=== PATIENT | female | born 2000 | race Hispanic/Latino ===

== ENCOUNTER 2022-09-15 15:11 | Inpatient (IN) | payer OTHER ==
[~2022-09-15] VITALS: Ht 152.4 cm; Wt 63.5 kg
[2022-09-15] MEDS ORDERED: SODIUM CHLORIDE 0.9% 1000ML 1,000 ML IV STA (15:37)
[2022-09-15] MEDS ORDERED: Vancomycin IV 1 GM in SODIUM CHLORIDE 0.9% 250ML 250 ML IV ONE (15:45)
[2022-09-15] MEDS ORDERED: CEFEPIME 2 GM in SODIUM CHLORIDE 0.9% 100 ML IV ONE (16:15)
[2022-09-15] MEDS ORDERED: CEFEPIME 2 GM VIAL ONE (16:30)
[2022-09-15] MEDS ORDERED: SODIUM CHLORIDE 0.9% 100 ML ONE (16:30)
[2022-09-15 16:42] LABS: BASOPHILS % 0.2 % (0.0-1.0); EOSINOPHILS # (AUTO) 0.2 (0.0-0.4); EOSINOPHILS % 1.6 % (0.0-6.0); LYMPHOCYTES # (AUTO) 1.7 (1.0-3.2); LYMPHOCYTES % 18.5 % (18.0-39.1); MEAN CORPUSCULAR HEMOGLOBIN 30.3 pg (28-32); MEAN CORPUSCULAR HGB CONC 33.3 g/dL (31-35); MEAN CORPUSCULAR VOLUME 90.9 fL (81-99); MONOCYTES # (AUTO) 0.5 (0.2-0.8); MONOCYTES % 5.6 % (4.4-11.3); NEUTROPHILS # (AUTO) 6.8 (2.1-6.9); PLATELET COUNT 349 x10e3/uL (140-360); RED BLOOD COUNT 4.95 x10e6/uL (3.6-5.1); RED CELL DISTRIBUTION WIDTH 11.9 % (11.7-14.4)
[2022-09-15 16:51] LABS: CLARITY,URINE SL CLOUDY (CLEAR); COLOR,URINE YELLOW (YELLOW); KETONES,URINE NEGATIVE (NEGATIVE); LEUKOCYTE ESTERASE ,URINE NEGATIVE (NEGATIVE); NITRITE,URINE NEGATIVE (NEGATIVE); PROTEIN,URINE DIPSTICK 1+ (NEGATIVE); URINE UROBILINOGEN 0.2 mg/dL (0.2 - 1)
[2022-09-15 16:57] LABS: ALANINE AMINOTRANSFERASE 8 IU/L (0-55); ALBUMIN 4.1 g/dL (3.5-5.0); ALBUMIN/GLOBULIN RATIO 1.1 (0.8-2.0); ALKALINE PHOSPHATASE 77 IU/L (40-150); ANION GAP 15.7 mmol/L (8-16); BLOOD UREA NITROGEN 11 mg/dL (7-26); BUN/CREATININE RATIO 12 (6-25); CALCIUM 9.6 mg/dL (8.4-10.2); CARBON DIOXIDE 22 mmol/L (22-29); CHLORIDE 103 mmol/L (98-107); CREATININE, SERUM 0.92 mg/dL (0.57-1.11); GLUCOSE 88 mg/dL (74-118); POTASSIUM 3.7 mmol/L (3.5-5.1); SODIUM 137 mmol/L (136-145)
[2022-09-15 17:07] LABS: BACTERIA,URINE RARE /HPF; EPITHELIAL CELLS,URINE MODERATE /LPF; RBC,URINE 0-5 /HPF (0-5); WBC,URINE (MAN) 0-5 /HPF (0-5)
[2022-09-15] MEDS ORDERED: IOPAMIDOL 370 MG/ML 100 ML INFUS..BTL INJ ONE (17:14)
[2022-09-15] MEDS ORDERED: ONDANSETRON HCL INJ 2MG/ML 2ML 2 MG/ML VIAL IV PRN (18:45)
[2022-09-15 19:12] VITALS: PULSE 74; RESP 17; O2SAT 98
[2022-09-15] MEDS: SODIUM CHLORIDE 0.9% 1000ML 1,000 ML IV SCH (19:28)
[2022-09-15] MEDS: Morphine 4mg INJECTION 4 MG/ML INJ IV PRN (19:32)
[2022-09-15 22:51] VITALS: BP 123/63; PULSE 65; RESP 18; TEMP 98.7; O2SAT 100
[2022-09-15 23:03] VITALS: BP 123/63; PULSE 65; RESP 18; TEMP 98.7; O2SAT 100
[2022-09-16] VITALS (8 sets, daily range): BP systolic 94–110; BP diastolic 43–66; PULSE 58–82; RESP 16–20; TEMP 97.9–98.3; O2SAT 98–100
[2022-09-16] MEDS: Morphine 4mg INJECTION 4 MG/ML INJ IV PRN ×3 (00:29→22:12)
[2022-09-16] MEDS: SODIUM CHLORIDE 0.9% 1000ML 1,000 ML IV SCH (00:33)
[2022-09-16] MEDS: Vancomycin IV 1 GM in SODIUM CHLORIDE 0.9% 250ML 250 ML IV SCH (04:16)
[2022-09-16 05:43] LABS: BASOPHILS % 0.2 % (0.0-1.0); EOSINOPHILS # (AUTO) 0.3 (0.0-0.4); EOSINOPHILS % 3.3 % (0.0-6.0); HEMATOCRIT 41.2 % (34.2-44.1); HEMOGLOBIN 13.3 g/dL (12.0-16.0); LYMPHOCYTES # (AUTO) 2.1 (1.0-3.2); LYMPHOCYTES % 24.1 % (18.0-39.1); MEAN CORPUSCULAR HEMOGLOBIN 30.2 pg (28-32); MEAN CORPUSCULAR HGB CONC 32.3 g/dL (31-35); MEAN CORPUSCULAR VOLUME 93.6 fL (81-99); MONOCYTES # (AUTO) 0.5 (0.2-0.8); MONOCYTES % 5.7 % (4.4-11.3); NEUTROPHILS # (AUTO) 5.8 (2.1-6.9); NEUTROPHILS % 66.4 % (38.7-80.0); PLATELET COUNT 329 x10e3/uL (140-360); RED CELL DISTRIBUTION WIDTH 11.9 % (11.7-14.4)
[2022-09-16 06:17] LABS: CALCIUM 8.1 mg/dL (8.4-10.2); CREATININE, SERUM 0.8 mg/dL (0.57-1.11)
[2022-09-16] MEDS ORDERED: PROPOFOL IV EMULSION 10 MG/ML 20 ML VIAL ONE (10:29)
[2022-09-16] MEDS ORDERED: KETOROLAC TROMETHAMINE 30 MG/ML VIAL ONE (10:29)
[2022-09-16] MEDS ORDERED: POVIDONE IODINE 0.05% 0.05 % ML PO ONE (10:29)
[2022-09-16] MEDS ORDERED: DEXAMETHASONE SOD PHOS INJ 4 MG/ML SDV ONE (10:29)
[2022-09-16] MEDS ORDERED: ONDANSETRON HCL INJ 2MG/ML 2ML 2 MG/ML VIAL ONE (10:29)
[2022-09-16] MEDS ORDERED: EPHEDRINE SULFATE INJ 50 MG/ML VIAL ONE (10:29)
[2022-09-16] MEDS ORDERED: SEVOFLURANE INHAL SOLN 250 ML PEN BTL ONE (10:29)
[2022-09-16] MEDS ORDERED: LIDOCAINE HCL 2% LOCAL INJ 5 ML SDV VIAL INJ ONE (10:29)
[2022-09-16] MEDS ORDERED: ACETAMINOPHEN 1000 MG/100 ML 100 ML IV ONE (11:49)
[2022-09-16] MEDS ORDERED: BUPIVACAINE 0.5%/EPI 30 ML SDV INJ ONE (12:07)
[2022-09-16] MEDS ORDERED: HYDROGEN PEROXIDE 120 ML BTL ONE (12:07)
[2022-09-16] MEDS ORDERED: FENTANYL CITRATE/PF 100MCG/2 ML INJ ONE (12:34)
[2022-09-16] MEDS ORDERED: GENTAMICIN SULFATE 40 MG/ML 2 ML VIAL ONE (12:49)
[2022-09-16] MEDS ORDERED: ONDANSETRON HCL INJ 2MG/ML 2ML 2 MG/ML VIAL IV PRN (13:45)
[2022-09-16] MEDS ORDERED: DIPHENHYDRAMINE HCL 25 MG CAP PO PRN (13:45)
[2022-09-16] MEDS ORDERED: Vancomycin IV 1 GM in SODIUM CHLORIDE 0.9% 250ML 250 ML IV SCH (13:45)
[2022-09-16] MEDS ORDERED: ACETAMINOPHEN 325 MG TAB PO PRN (13:45)
[2022-09-16] MEDS ORDERED: GENTAMICIN 120MG/NS 100ML 100 ML IV SCH (14:00)
[2022-09-16] MEDS: LACTATED RINGER'S 1,000 ML IV SCH ×2 (20:49→22:12)
[2022-09-16] MEDS: GENTAMICIN 120MG/NS 100ML 100 ML IV SCH (20:49)
[2022-09-17] VITALS (7 sets, daily range): BP systolic 99–109; BP diastolic 57–82; PULSE 58–66; RESP 16–19; TEMP 97.9–98.6; O2SAT 99–100
[2022-09-17] MEDS: KETOROLAC TROMETHAMINE 30 MG/ML VIAL IV SCH ×5 (00:06→18:20)
[2022-09-17] MEDS: Vancomycin IV 1 GM in SODIUM CHLORIDE 0.9% 250ML 250 ML IV SCH ×3 (04:00→16:09)
[2022-09-17] MEDS: GENTAMICIN 120MG/NS 100ML 100 ML IV SCH ×3 (05:17→21:10)
[2022-09-17] MEDS: LACTATED RINGER'S 1,000 ML IV SCH ×3 (05:45→21:10)
[2022-09-17] MEDS: HYDROCODONE/APAP 7.5MG-325MG 1 EA TAB PO PRN ×2 (16:09→21:09)
[2022-09-18] VITALS (7 sets, daily range): BP systolic 105–111; BP diastolic 63–78; PULSE 54–67; RESP 16–18; TEMP 97.8–99.7; O2SAT 97–100
[2022-09-18] MEDS: Vancomycin IV 1 GM in SODIUM CHLORIDE 0.9% 250ML 250 ML IV SCH (03:38)
[2022-09-18] MEDS: GENTAMICIN 120MG/NS 100ML 100 ML IV SCH (04:57)
[2022-09-18] MEDS: LACTATED RINGER'S 1,000 ML IV SCH ×3 (05:02→21:27)
[2022-09-18] MEDS: KETOROLAC TROMETHAMINE 30 MG/ML VIAL IV SCH ×4 (06:40→17:25)
[2022-09-18] MEDS ORDERED: CEFTRIAXONE 2 GM in SODIUM CHLORIDE 0.9% 100 ML IV SCH (18:00)
[2022-09-19] VITALS: BP 121/51; PULSE 68; RESP 18; TEMP 99.3; O2SAT 99
[2022-09-19] MEDS: KETOROLAC TROMETHAMINE 30 MG/ML VIAL IV SCH ×3 (00:10→12:00)
[2022-09-19 04:00] VITALS: BP 113/60; PULSE 59; RESP 20; TEMP 98.8; O2SAT 100
[2022-09-19] MEDS: LACTATED RINGER'S 1,000 ML IV SCH ×2 (05:08→15:29)
[2022-09-19 08:02] VITALS: BP 109/69; PULSE 60; RESP 17; TEMP 97.9; O2SAT 99
[2022-09-19 08:45] VITALS: BP 109/69; PULSE 60; RESP 17; TEMP 97.9; O2SAT 99
[2022-09-19 11:17] VITALS: BP 116/74; PULSE 60; RESP 19; TEMP 98.2; O2SAT 100
[2022-09-19 15:21] VITALS: BP 128/77; PULSE 57; RESP 21; TEMP 98.2; O2SAT 99
[2022-09-19] MEDS ORDERED: KEFLEX125 MG/5 M PO (15:41)
[2022-09-19] MEDS ORDERED: ONDANSETRON HCL 4 MG ORAL DISINTEGRATING TAB PO PRN (17:30)
== END 2022-09-19 17:33 | disposition home or self-care (01) | DRG 746 ==
LOC: ER 15:19 → INTOOBSV 18:49 → ERHOLD 18:49 → MED/SURG2 20:44 → OBSVTOIN 09-19 09:01
PROVIDERS: ADMIT Internal Medicine; ATTEND Internal Medicine
PROC: 0U9M0ZZ Drainage of Vulva, Open Approach (ICD-10-PCS; principal; 2022-09-19)
DX: N76.4 Abscess of vulva (principal); U07.1 COVID-19
CPT/HCPCS: 36415; 74177; 80048; 80053; 80202; 81001; 84702; 85025; 87071; 87075; 87205; 94799; 96361; G0378; J0692; J0696; J1100; J1580; J1885; J2001; J2270; J2405; J7030; J7050; Q9967

== ENCOUNTER 2023-02-23 02:04 | Emergency (ER) | payer OTHER ==
[~2023-02-23] VITALS: Ht 152.4 cm; Wt 61.2 kg
[~2023-02-23 02:04] MED LIST: ACETAMINOPHEN-1 EAC4 PO; AMOX TR-K CLV1 EAC2 PO; KEFLEX125 MG/5 M PO; ONDANSETRON ODT4 MG PO
[2023-02-23] MEDS ORDERED: LIDOCAINE HCL 1% LOCAL INJ 20 ML VIAL INJ STA (02:17)
[2023-02-23 02:50] LABS: BILIRUBIN,URINE NEGATIVE (NEGATIVE); CLARITY,URINE CLEAR (CLEAR); COLOR,URINE YELLOW (YELLOW); GLUCOSE, URINE NEGATIVE (NEGATIVE); KETONES,URINE NEGATIVE (NEGATIVE); LEUKOCYTE ESTERASE ,URINE TRACE (NEGATIVE); NITRITE,URINE NEGATIVE (NEGATIVE); PH,URINE 6 (5 - 7); PROTEIN,URINE DIPSTICK NEGATIVE (NEGATIVE); URINE UROBILINOGEN 0.2 mg/dL (0.2 - 1)
[2023-02-23 02:51] LABS: PREGNANCY TEST, URINE NEGATIVE (NEGATIVE)
[2023-02-23] MEDS ORDERED: LIDOCAINE1 EA TOP (02:59)
[2023-02-23] MEDS ORDERED: Morphine 4mg INJECTION 4 MG/ML INJ IM ONE (03:00)
[2023-02-23] MEDS ORDERED: HYDROCODONE/APAP 5MG-325MG TAB PO ONE (03:00)
[2023-02-23 03:44] VITALS: O2SAT 100
[2023-02-23 04:34] LABS: BACTERIA,URINE MANY /HPF; EPITHELIAL CELLS,URINE MANY /LPF
== END 2023-02-23 03:45 | disposition home or self-care (01) ==
LOC: ER 02:21
DX: N75.0 Cyst of Bartholin's gland (principal); R11.0 Nausea
CPT/HCPCS: 81001; 81025; 99282; J2270